=== PATIENT | female | born 1975 | race Caucasian/White ===

== ENCOUNTER 2017-07-02 09:31 | Emergency (ER) | payer OTHER ==
[~2017-07-02] VITALS: Ht 175.3 cm; Wt 84.2 kg
[~2017-07-02 09:31] MED LIST: ACETAMINOPHN-T1 EACH PO; B-121000 MC2 PO; CALCIUM 600 +1 EAC5 PO; GLUCOPHAGE850 MG PO; IRON240 MG PO; IRON325 M1 PO; LEVOTHYROXINE50 MCG PO; MEGARED OMEGA-1 EACH PO; METFORMIN HCL1000 MG PO; METOCLOPRAM5 MG/1 M1 PO; PEPCID20 MG PO; PERCOCET 5/31 TABLET PO; PREDNISONE; SIMVASTATIN40 MG PO; TAGAMET; ZYRTEC1 MG/1 ML PO
[2017-07-02 10:09] LABS: HEMATOCRIT 40.3 % (36.0-46.0); MCH 30.4 PG (29.0-34.0); MCV 89.6 FL (83-99); PLATELET COUNT 240 K/uL (156-360); RBC DIS.WIDTH-CV 11.7 % (11.8-14.6); WHITE BLOOD COUNT 8.3 K/uL (4.1-10.2)
[2017-07-02 10:31] LABS: TROP-I INTERPRETATION NEGATIVE; TROPONIN-I < 0.01 ng/mL (0.0-0.30)
[2017-07-02 11:42] LABS: CHLORIDE 107 mEq/L (99-109); POTASSIUM 4.2 mEq/L (3.7-5.4); SODIUM 138 mEq/L (136-147)
[2017-07-02 11:44] LABS: GLUCOSE 119 mg/dL (70-99)
[2017-07-02 11:45] LABS: ANION GAP 7 MEQ/L (2-14)
[2017-07-02 11:47] LABS: GFR ESTIMATE (CALCULATED) > 59 mL/min/
[2017-07-02 11:48] LABS: UREA NITROGEN (BUN) 9 mg/dL (9-23)
[2017-07-02 12:03] LABS: LIPASE 38 U/L (1.0-51.0)
[2017-07-02 14:13] LABS: TROP-I INTERPRETATION NEGATIVE; TROPONIN-I < 0.01 ng/mL (0.0-0.30)
[2017-07-02] MEDS ORDERED: BENTYL20 MG PO (14:40)
[2017-07-02] MEDS ORDERED: ZOFRAN4 MG PO (14:41)
[2017-07-02 14:59] VITALS: BP 123/70
== END 2017-07-02 15:01 | disposition home or self-care (01) ==
LOC: EME 09:31
PROVIDERS: Nurse Practitioner Family
DX: R10.11 Right upper quadrant pain (principal); I10 Essential (primary) hypertension; E78.5 Hyperlipidemia, unspecified; E11.9 Type 2 diabetes mellitus without complications; Z79.84 Long term (current) use of oral hypoglycemic drugs; J45.909 Unspecified asthma, uncomplicated; E03.9 Hypothyroidism, unspecified; Z88.8 Allergy status to other drugs, medicaments and biological substances
CPT/HCPCS: 71020; 76705; 80048; 83690; 84484; 85027; 93005; 99281; 99284